=== PATIENT | female | born 1960 | race Caucasian/White ===

== ENCOUNTER 2017-08-25 07:49 | Emergency (ER) | payer OTHER ==
[~2017-08-25] VITALS: Ht 160 cm; Wt 77.1 kg
[2017-08-25 08:00] VITALS: BP_SYST 134
--- NOTE | 2017-08-25 08:31 | NUR ---
Patient to ER bed 6 to gown for evaluation. Side rails up. Report given to Kevan ALFONSO.
--- NOTE | 2017-08-25 08:35 | NUR ---
ER at bedside examining patient.
[2017-08-25 08:38] LABS: BASOPHILS % (AUTO) 0.8 % (0.0-2.0); EOSINOPHILS # (AUTO) 0.1 K/uL (0.0-0.4); EOSINOPHILS % (AUTO) 1.5 % (0.0-4.0); HEMATOCRIT 40.1 % (36-48); HEMOGLOBIN 13.5 g/dL (12.0-16.0); LYMPHOCYTES # (AUTO) 1.6 K/uL (1.0-5.5); LYMPHOCYTES % (AUTO) 27.6 % (20.5-51.5); MEAN CORPUSCULAR HEMOGLOBIN 29 pg (27-31); MEAN CORPUSCULAR HGB CONC 34 % (32-36); MEAN CORPUSCULAR VOLUME 87 fL (79.0-98.0); MONOCYTES # (AUTO) 0.3 K/uL (0.0-1.0); MONOCYTES % (AUTO) 5.6 % (1.7-9.3); NEUTROPHILS % (AUTO) 64.5 % (40.0-70.0); PLATELET COUNT (AUTO) 288 K/uL (130-430); RED BLOOD CELL COUNT(AUTO) 4.62 MIL/uL (4.2-6.2); RED CELL DISTRIBUTION WIDTH 11.8 % (9.0-15.0)
--- NOTE | 2017-08-25 08:40 | NUR ---
Pt presents to ER c/o flu like symptoms since 08/19/17. Pt reports vomiting, nausea, coughing, and pain 03/02 with cough. Pt reports taking cough medicine at home. Pt denies receiving flu shot. Pt reports history of DM & HTN. Pt in no acute distress, AOX4, NKDA, family at bedside. Pt is sao tomean speaking, family at bedside providing translation.
--- NOTE | 2017-08-25 10:45 | NUR ---
ER at bedside updating pt and family on lab and diagnostic results.
[2017-08-25 10:46] LABS: CALCIUM 8.8 mg/dL (8.4-11.0); CREATININE 0.6 mg/dL (0.55-1.30); POTASSIUM 3.2 mmol/L (3.5-5.1)
[2017-08-25 10:52] LABS: TOTAL BILIRUBIN 0.3 mg/dL (0.0-1.0)
[2017-08-25 11:10] LABS: BILIRUBIN,URINE NEGATIVE (NEGATIVE); COLOR,URINE YELLOW (YELLOW); GLUCOSE,URINE NEGATIVE (NEGATIVE); KETONES,URINE NEGATIVE (NEGATIVE); LEUKOCYTE ESTERASE ,URINE 1+ (NEGATIVE); NITRITE, URINE NEGATIVE (NEGATIVE); PROTEIN URINE NEGATIVE (NEGATIVE); UROBILINOGEN,URINE 0.2 (0.2-1.0)
[2017-08-25 11:15] VITALS: BP_SYST 142
--- NOTE | 2017-08-25 11:15 | NUR ---
Patient given written and verbal discharge instructions and verbalizes understanding. ER MD discussed with patient the results and treatment provided. Patient in stable condition. ID arm band removed. Rx of Promethazine Hcl given. Patient educated on pain management and to follow up with PMD. Pain Scale 2/10. Opportunity for questions provided and answered.
[2017-08-25 11:19] LABS: BLOOD, URINE TRACE (NEGATIVE)
[2017-08-25 11:20] LABS: CLARITY/URINE HAZY (CLEAR)
[2017-08-25 11:37] LABS: BACTERIA,URINE FEW /HPF (None Seen); MUCUS,URINE 1+ /LPF (None Seen); RBC,URINE 0-3 /HPF (0-3)
[2017-08-25 11:52] LABS: ALBUMIN 3.6 g/dL (3.4-4.8)
== END 2017-08-25 11:15 | disposition home or self-care (01) ==
LOC: SED 07:49
DX: J06.9 Acute upper respiratory infection, unspecified (principal)
CPT/HCPCS: 36415; 71045; 80053; 81000-TC; 83690-TC; 85025; 86710; 87086; 99285